=== PATIENT | male | born 1945 | race Caucasian/White ===

== ENCOUNTER 2018-10-02 12:11 | Emergency (ER) | payer OTHER ==
[2018-10-02] MEDS ORDERED: predniSONE 20 MG TABLET PO STA (12:35)
[2018-10-02] MEDS ORDERED: diphenhydrAMINE 25 MG CAPSULE PO STA (12:35)
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
[2018-10-02 13:34] VITALS: BP 189/80
== END 2018-10-02 13:41 | disposition home or self-care (01) ==
LOC: ED 12:11
DX: T63.441A Toxic effect of venom of bees, accidental (unintentional), initial encounter (principal); X58.XXXA Exposure to other specified factors, initial encounter; Y92.410 Unspecified street and highway as the place of occurrence of the external cause; Z87.891 Personal history of nicotine dependence
CPT/HCPCS: 99283; A9270; J7512